=== PATIENT | female | born 2000 ===

== ENCOUNTER 2023-08-01 10:22 | Emergency (ER) | payer MEDICAID, SELFPAY ==
[2023-08-01 10:26] VITALS: BP 125/83; PULSE 85; RESP 15; TEMP 36.6; O2SAT 96; BMI 31.2
--- NOTE | 2023-08-01 11:01 | ED.GENADULT ---
HPI - General Adult General Chief complaint: Wound/Laceration Stated complaint: cyst on spine/ in pain Time Seen by Provider: 08/01/23 11:00 Source: patient Mode of arrival: ambulatory Limitations: no limitations History of Present Illness HPI narrative: Patient is a 23 year old assigned female at with no reported medical history presenting to the emergency department today with a pilonidal abscess. Patient states that she knows she has a pilonidal abscess and has an appointment with general surgery coming up for this issue. Patient states that 2 days ago it began to leak. Patient denies any dizziness, lightheadedness, abdominal pain, nausea, vomiting, fever, chills, blurry vision, double vision, loss of vision, chest pain, difficulty breathing, shortness of breath, back pain, night sweats, pain with urination, increased urinary frequency, increased urinary urgency, blood in her urine or stool, syncope or a near syncopal episode, recent trauma or falls, bowel incontinence, bladder incontinence, bowel retention, bladder retention, or any other complaints at this time. Severity: mild Relieving factors: none Exacerbating factors: none Associated symptoms: denies other symptoms Treatments prior to arrival: none Related Data Allergies Allergy/AdvReac Type Severity Reaction Status Date / Time cetirizine [From [facility]] Allergy Hives Verified 08/01/23 10:26 Review of Systems Constitutional: Constitutional: Reports no additional constitutional complaints, Denies chills, Denies fever(s) and Denies night sweats Eyes: Eyes: Reports no additional eye complaints, Denies blurry vision, Denies change in vision, Denies diplopia, Denies eye discharge, Denies loss of vision and Denies eye pain ENT: Denies dizziness Cardiovascular: Cardiovascular: Reports no additional cardiovascular complaints, Denies chest pain, Denies lightheadedness, Denies Loss of Consciousness and Denies dyspnea Respiratory: Respiratory: Reports no additional respiratory complaints and Denies dyspnea Gastrointestinal: Gastrointestinal: Reports no additional gastrointestinal complaints, Denies abdominal pain, Denies melena, Denies hematochezia, Denies change in bowel habits and Denies change in stool character Comments: pilonidal abscess Genitourinary: Genitourinary: Denies hematuria, Denies urinary frequency, Denies dysuria, Denies urinary incontinence, Denies urinary hesitancy and Denies urinary urgency Musculoskeletal: Musculoskeletal: Reports no additional musculoskeletal complaints, Denies numbness and Denies tingling Neurologic: Denies dizziness, Denies loss of vision, Denies numbness and Denies tingling Psychiatric: Psychiatric: Reports no additional psychiatric complaints Endocrine: Endocrine: Reports no additional endocrine complaints Hematologic/Lymphatic: Hematologic/Lymphatic: Reports no additional hematologic/lymphatic complaints Allergic/Immunologic: Allergic/Immunologic: Reports no additional allergic/immunologic complaints PMFSH Past Medical History Attestation statement: The following information was validated with the patient. Source: old records reviewed and nursing notes reviewed Onset Date is defined in the Problem List Problems that require an onset date and time if occurred within 24 hrs of arrival to the ED Aortic Dissection and Rupture; Neurologic impairment; Cardiopulmonary Arrest; Endotracheal Intubation; Insertion or Replacement of Mechanical Circulatory Assist Device Social History Social History Advance Directives: No Advance Directives Information Provided: No Physical Exam ED Vital Signs: Vital Signs - 24 hr 08/01/23 10:26 Temperature 98 F Pulse Rate 85 Respiratory Rate 15 Blood Pressure 125/83 Pulse Oximetry 96 Oxygen Delivery Method Room Air BMI result Body Mass Index 31.2 Const General: cooperative, no acute distress, alert and awake Nutritional Appearance: well nourished Orientation/consciousness: patient oriented x3 Limitations: no limitations HENMT Head: Yes normal to inspection and Yes atraumatic Ears: hearing grossly normal bilaterally and external ears normal General nose exam: Normal external nose present, no nasal discharge noted and no epistaxis Face and sinus: Yes normal facial exam, No abrasion and No laceration Mouth: Normal oral and palatal mucosa present, no drooling and no muffled voice Eyes General: appearance normal, both eyes and all related structures Periorbital: periorbital findings normal Eyelids: Yes eyelids normal Conjunctivae: conjunctivae normal Pupils: Equal, round and reactive pupils present EOM: EOMs intact bilaterally Neck Neck: Yes normal visual inspection, Yes full ROM and Yes no lymphadenopathy Chest Chest palpation & inspection: normal inspection of the chest Resp Effort & Inspection: normal respiratory effort and able to speak in complete sentences GI Other: pilonidal abscess actively draining at the 10 o'clock position on the left buttock Neuro General: patient oriented x3 and moves all extremities Cranial nerves: Yes Equal, round and reactive pupils present Cognition (Neuro): normal cognition Motor exam (neuro): 5/5 motor strength present throughout Sensory Exam: Normal double simultaneous stimulation for sensation Coordination: [id number] test normal Extrem General: Yes normal to inspection, Yes full ROM and Yes capillary refill normal Psych Appearance: grossly normal Mental Status: mental status grossly normal Affect: normal affect Attitude: cooperative Thought process: Normal thought process present Thought content: Normal thought content present Insight: Good insight present (Psych) Medical Decision Making Medical Decision Making MDM Narrative: Patient is a 23 year old assigned female at with no reported medical history presenting to the emergency department today with a draining pilonidal abscess. Patient's physical exam was as noted in the physical exam portion of this note. I explained my physical exam findings to the patient. I answered all questions asked by the patient. Patient's abscess is already draining, no need for additional intervention at this time. I stressed the importance of the patient taking her medication as prescribed. I stressed the importance of the patient following up with her primary care provider and the general surgeon. I stressed the importance of the patient returning to the emergency department immediately if her symptoms were to worsen or if she were to develop any dizziness, shortness of breath, difficulty breathing, chest pain, blurry vision, loss of vision, nausea, vomiting, abdominal pain, fever, chills, back pain, or any other complaints. Patient verbalized agreement and understanding with this treatment plan and discharge. Differential Diagnosis Differential Diagnoses: The differential diagnosis associated with the presentation includes Pilonidal abscess Pilonidal cyst Admission/Observation Consideration of admission/observation: Escalation of care including admission/observation considered Patient would have been admitted to the hospital had her clinical presentation warranted hospital admission. Discharge Plan Discharge Clinical Impression: Pilonidal abscess Patient Disposition: Home, Self-Care Instructions: Pilonidal Cyst (ED), Abscess (ED) Additional Instructions: Follow up with your primary care provider and your general surgeon. Return to the emergency department immediately if your symptoms worsen or if you develop any dizziness, shortness of breath, difficulty breathing, chest pain, blurry vision, loss of vision, nausea, vomiting, abdominal pain, fever, chills, back pain, or any other complaints. Referrals: [facility] General Surgeons [Provider Group] (Call to establish and follow up with a general surgeon. ) [facility] Family Medicine [Provider Group] (Call to establish and follow up with a primary care provider. If you already have a primary care provider, please follow up with them.) [facility] [Provider Group] (Call to establish and follow up with a primary care provider. If you already have a primary care provider, please follow up with them.) [facility] [Provider Group] (Call to establish and follow up with a primary care provider. If you already have a primary care provider, please follow up with them.) Interventions: ED Discharge Assessment Last Done: 08/01/23 11:18 Discharge Date/Time: 08/01/23 11:24 Print Language: Arabic
== END 2023-08-01 11:24 | disposition home or self-care (01) ==
LOC: HO.ED 11:14
PROVIDERS: Emergency Provider Emergency Medicine
DX: L05.91 Pilonidal cyst without abscess (principal)
CPT/HCPCS: 10080; 99202; 99282

== ENCOUNTER 2023-08-01 12:38 | Outpatient (AMB) | payer MEDICAID, SELFPAY ==
[2023-08-01 12:39] VITALS: BP 129/91; PULSE 107; BMI 30.3
--- NOTE | 2023-08-01 12:39 | MHC.OFFVIS ---
Intake Vital Signs 08/01/23 12:39 Height 5 ft Weight 155 lb BMI 30.3 BP 129/91 H Blood Pressure Location Rt brachial Position Standing Pulse 107 H Intake Visit Reasons: Pilonidal cyst Intake Note: Patient scheduled urgent appointment fir inflamed pilonidal cyst. Patient c/o: difficulty and pain when sitting. Was seen at [facility] ER on 07-27-23. Patient seen at [facility] this morning. Taking Cephalexin X3d. Specialty Trimmer Required: No Accompanied by: Self / Same As Patient Allergies cetirizine [From [facility]] Allergy (Verified 08/01/23 12:42) Hives HPI HPI Comments History of Present Illness Details Patient presents with a several week history of cleft/pilonidal cyst pain, swelling and some discharge. She was seen earlier in emergency department today and now presents to the office for further evaluation. Chart was reviewed patient evaluated [facility] Social History (Updated 08/01/23 @ 12:42 by CHELY Bledsoe) Alcohol intake: current Alcohol intake frequency: holidays/special occasions only Alcohol type: beer Patient Tobacco Use Status: Never used Tobacco Physical Exam Vital Signs: Last Vital Signs Pulse 107 H 08/01/23 12:39 BP 129/91 H 08/01/23 12:39 BMI result Body Mass Index 30.3 Back/Spine/Pelvis Other: Patient has an enormous pilonidal cyst abscess of the farzad cleft. This measures approximately 8 x 5 cm. Erythematous, fluctuant, very tender to palpation Office Procedures I&D Drain Details: Risks, benefits, alternatives of excision of complex pilonidal abscess were reviewed with the patient and included but not limited to bleeding, infection, recurrence, numbness, pain, scarring the patient wished to proceed. All questions answered. After appropriate positioning, patient underwent 1% lidocaine and Betadine prep. Left side of midline abscess was incised where copious amounts of purulent material were retrieved. Cultures obtained. Wound was irrigated, secured hemostasis, packed, and dressing applied. Patient tolerated procedure well. 44430-[id number] of Pilonidal Cyst, complex All charges added?: Procedure code (CPT) selection complete Assessment & Plan Assessment & Plan (1) Pilonidal abscess: Code(s): L05.01 - Pilonidal cyst with abscess Plan: Patient is to continue her prescribed antibiotics, she was given a script analgesics, VNA services and office dressing change arrangements will be made. Patient will see me in approximately 1 week's time for follow-up or p.r.n.. All questions answered. Orders: Orders Routine Culture w Gram Stain Today L05.01 - Pilonidal cyst with abscess AMB Incision & Drainage Today L05.01 - Pilonidal cyst with abscess Referrals [facility] Referral L05.01 - Pilonidal cyst with abscess Medications: New hydrocodone-acetaminophen 5-325 mg Partial Fill upon patient request. 1 tab PO Q4-6H PRN 30 tabs 0RF pain Coding Level of Care Code New Pt Level 5 (46291) Diagnoses Pilonidal abscess L. CPT Codes I&D Drain - Drain 4: 45501-Exqtkxrr of Pilonidal Cyst, complex ([id number])
== END 2023-08-01 13:06 | disposition home or self-care (01) ==
PROVIDERS: Visit Provider Surgery
DX: L05.01 Pilonidal cyst with abscess (principal)
CPT/HCPCS: 10080; 99204

== ENCOUNTER 2023-08-01 13:10 | Outpatient (REF) | payer MEDICAID, SELFPAY | END 2023-08-01 13:11 | disposition home or self-care (01) | LOC: HO.LAB 13:10 | PROVIDERS: Visit Provider Surgery | DX: L05.01 Pilonidal cyst with abscess (principal) | CPT/HCPCS: 87070; 87205 ==

== ENCOUNTER 2023-08-13 13:37 | Outpatient (AMB) | payer MEDICAID, SELFPAY ==
[2023-08-13 13:37] VITALS: BP 125/82; PULSE 99; BMI 30.3
--- NOTE | 2023-08-13 13:37 | A.OFFVIS_ITS ---
Intake Vital Signs 08/13/23 13:37 Height 5 ft Weight 155 lb BMI 30.3 BP 125/82 Blood Pressure Location Rt brachial Position Standing Pulse 99 Intake Visit Reasons: F/U post I&D in office, pilonidal cyst Intake Note: Patient here post I&D on 08-01-23. No longer taking rx pain meds. Patient c/o:pressure and skin feels like it is pulling when sitting. Ophthalmology Technician Required: No Accompanied by: Self / Same As Patient Allergies cetirizine [From [facility]] Allergy (Verified 08/13/23 13:38) Hives HPI HPI Comments History of Present Illness Details Patient presents for follow-up status post I&D of pilonidal complex abscess. She has had marked improvement of her symptoms. She is undergoing local wound care. She is completing her antibiotic course. No other issues or complaints [facility] Surgical History (Updated 08/13/23 @ 13:39 by CHELY Bledsoe) History of excision of pilonidal cyst Social History (Updated 08/01/23 @ 12:42 by CHELY Bledsoe) Alcohol intake: current Alcohol intake frequency: holidays/special occasions only Alcohol type: beer Patient Tobacco Use Status: Never used Tobacco Physical Exam Vital Signs: Last Vital Signs Pulse 99 08/13/23 13:37 BP 125/82 08/13/23 13:37 BMI result Body Mass Index 30.3 Back/Spine/Pelvis Other: Pilonidal wound has markedly decreased in size, granulating well, and complete resolution of the infective process. Assessment & Plan Assessment & Plan (1) Pilonidal cyst with abscess: Code(s): L05.01 - Pilonidal cyst with abscess Plan Patient is continue local wound care, and will see me in approximately 2 weeks' time. She wishes to discuss excision of this process which we will do in more detail at the next visit. All questions answered. Patient will see me as directed or p.r.n. Coding Level of Care Code Global (25411) Diagnoses Pilonidal cyst with abscess L05.01
== END 2023-08-13 13:52 | disposition home or self-care (01) ==
PROVIDERS: Visit Provider Surgery
DX: L05.01 Pilonidal cyst with abscess (principal)
CPT/HCPCS: 99024

== ENCOUNTER → 2023-08-13 13:37 | Outpatient (BNVA) | payer MEDICAID, SELFPAY | PROVIDERS: Visit Provider Surgery | DX: L05.01 Pilonidal cyst with abscess (principal) | CPT/HCPCS: 99212 ==

== ENCOUNTER 2023-09-01 14:13 | Outpatient (AMB) | payer MEDICAID, SELFPAY ==
--- NOTE | 2023-09-01 14:14 | A.OFFVIS_ITS ---
Intake Vital Signs 09/01/23 14:17 Weight 155 lb BP 125/77 Blood Pressure Location Lt brachial Position Sitting Pulse 67 Intake Visit Reasons: F/U post I&D in office, pilonidal cyst Intake Note: Patient here to f/u pilonidal cyst I&D on 08-01-23. Finished bactrin course. Patient reports healing well. Java Enterprise Architect Required: No Accompanied by: Self / Same As Patient Allergies cetirizine [From [facility]] Allergy (Verified 09/01/23 14:18) Hives HPI HPI Comments History of Present Illness Details Patient presents for follow-up status post I&D of complex pilonidal abscess. She has complete resolution of her symptoms. [facility] Surgical History History of excision of pilonidal cyst Social History Alcohol intake: current Alcohol intake frequency: holidays/special occasions only Alcohol type: beer Patient Tobacco Use Status: Never used Tobacco Physical Exam Vital Signs: Last Vital Signs Pulse 67 09/01/23 14:17 BP 125/77 09/01/23 14:17 Chest Other: Chest breath sounds bilaterally, HS 1 in 2 GI Other: Abdomen soft, benign Back/Spine/Pelvis Other: Abscess wound is completely healed. Assessment & Plan Assessment & Plan (1) Pilonidal cyst with abscess: Code(s): L05.01 - Pilonidal cyst with abscess Plan Therapeutic options were reviewed with the patient which include DNR observation with risk of recurrence or excision. Patient has opted for the latter. Risks, benefits, alternatives of wide local excision of pilonidal cyst of farzad cleft were reviewed with the patient and included but not limited to bleeding, infection, recurrence, numbness, pain, scarring, wound dehiscence, seroma formation and the patient wishes to proceed. All questions answered. Arrangements were made for this. Coding Level of Care Code Est Pt Level 5 (85560) Diagnoses Pilonidal cyst with abscess L05.01
[2023-09-01 14:17] VITALS: BP 125/77; PULSE 67
== END 2023-09-01 14:36 | disposition home or self-care (01) ==
PROVIDERS: Visit Provider Surgery
DX: L05.01 Pilonidal cyst with abscess (principal)
CPT/HCPCS: 99214

== ENCOUNTER → 2023-09-01 14:13 | Outpatient (BNVA) | payer MEDICAID, SELFPAY | PROVIDERS: Visit Provider Surgery | DX: L05.01 Pilonidal cyst with abscess (principal) | CPT/HCPCS: 99212 ==

== ENCOUNTER 2023-09-19 10:37 | Day surgery (SDC) | payer MEDICAID, SELFPAY ==
--- NOTE | 2023-09-17 15:23 | HO.ANESPROP2 ---
Documented by User: Nuvia Schwartz NP 09/17/23 15:24 HPI - Anesthesia Eval Consult details Narrative: 23yo F for Wide Local Excision Pilonidal Cyst of farzad cleft, prone position [facility] Active Problems Active Problems: All Active Problems (Updated 08/13/23 @ 14:07 by Colt Verma MD) Pilonidal cyst with abscess (Acute) Surgical History Surgical History History of excision of pilonidal cyst Social History Social History Alcohol intake: current Alcohol intake frequency: holidays/special occasions only Alcohol type: beer Patient Tobacco Use Status: Never used Tobacco Use of substances other than those prescribed or required for medical reasons: Yes Are you DNR?: No Advance Directives: No Advance Directives Information Provided: Yes Meds Allergies Allergy/AdvReac Type Severity Reaction Status Date / Time cetirizine [From [facility]] Allergy Hives Verified 09/01/23 14:18 Home Medications Medication Instructions Recorded Confirmed Last Taken Type lamotrigine 100 mg tablet 100 mg PO DAILY 09/19/23 09/19/23 09/19/23 History Assessment and Plan Assessment Anesthesia Assessment: Chart Reviewed Documented by User: Camilla Hung MD 09/19/23 14:02 [facility] Surgical History Surgical History History of excision of pilonidal cyst History of Problems with Anesthesia: No Social History Social History Alcohol intake: current Alcohol intake frequency: holidays/special occasions only Alcohol type: beer Patient Tobacco Use Status: Never used Tobacco Use of substances other than those prescribed or required for medical reasons: Yes Are you DNR?: No Advance Directives: No Advance Directives Information Provided: Yes Meds Allergies Allergy/AdvReac Type Severity Reaction Status Date / Time cetirizine [From [facility]] Allergy Hives Verified 09/01/23 14:18 Home Medications Medication Instructions Recorded Confirmed Last Taken Type lamotrigine 100 mg tablet 100 mg PO DAILY 09/19/23 09/19/23 09/19/23 History Exam Airway Mallampati Class: II TM Dist: >3cm Neck ROM: Full Loose/Missing/Broken Teeth: No Heart: RRR Lungs: CTA Assessment and Plan Assessment Anesthesia Assessment: Anesthesia Plan Discussed Final Anesthetic Review History of Problems with Anesthesia: No NPO: Yes ASA Class: II Final Preanesthetic Review: Meds/Allgs Chart Reviewed, Consent Obtained/Reviewed and Anes Risks/Benef Reviewed Patient Risk: Low Procedure Risk: Intermediate Anesthetic Plan Anesthetic Plan: GA Disposition: Standard PACU
--- NOTE | 2023-09-18 21:04 | P.HPSUR_ITS ---
Pre-Procedural Eval Section A - 24 Hr Update-Section A only Date of Service: 09/18/23 The patient is an INPATIENT: No Changes since office visit: No Cold of Flu in the past 2 weeks, No New Medical Problems, No Changes in Medication and No Patient answered all questions The patient has been examined within 24 hours of the surgical procedure. The History & Physical has been completed within 30 days and I have reviewed it.: Yes Section B - Complete if H&P > 30 days Chief Complaint: Pilonidal cyst with abscess Allergies: Allergies Allergy/AdvReac Type Severity Reaction Status Date / Time cetirizine [From [facility]] Allergy Hives Verified 09/01/23 14:18 Plan I have reviewed the history and physical and performed a pertinent physical examination on my patient. No changes have occurred unless specified. Time Spent With Patient Time: Total time managing care of this patient today ____ minutes.
[2023-09-19 11:51] VITALS: BP 107/68; PULSE 52; RESP 18; TEMP 36.1; O2SAT 96; BMI 26.4
[2023-09-19 11:56] LABS: UPreg QC Valid YES; Urine Pregnancy NEGATIVE (NEGATIVE)
[2023-09-19] MEDS: Lactated Ringers 1,000 ML 100 ML IVCONT (12:26)
--- NOTE | 2023-09-19 15:23 | P.OP_ITS ---
Operative Note Operative Note Date of Service: 09/19/23 Narrative: Preoperative diagnosis: [] Recurrent pilonidal cyst symptoms of cleft Postop diagnosis: [] The same Procedure [] pilonidal cyst excision of cleft Surgeon: [] Bayron Composition Roll Maker And Cutter: [] Lyric Type of Anesthesia: [] LMA Indication for surgery: [] Recurrent pilonidal cyst Findings: [] Patient brought to the operating room, placed on operative table supine position, after an adequate level of MAC anesthesia was induced, patient was placed in the prone position and LMA placed. The farzad cleft area and bilateral buttock area was prepped and draped in usual sterile fashion. Using a longitudinal by elliptical incision just to the left of midline were the diseased tissue presented, this carried down through skin, subcutaneous tissue, and continued excision down to the post sacral fascia. Specimen sent to pathology. Wounds irrigated, secured hemostasis, and closed in the following manner; deep subcutaneous tissue to wound base to contralateral deep subcutaneous tissue interrupted 0 Vicryl sutures were initially placed. Interrupted inverted dermal 2-0 Vicryl sutures followed by vertical mattress 2-0 Prolene sutures were then placed. Wound was infiltrated at the beginning of the case with 0.5% Marcaine/1% lidocaine. Sterile dressing was applied. Sponge, needle, and instrument counts reported correct. Patient tolerated the procedure well and emerged from anesthesia in stable condition. EBL minimal
[2023-09-19 15:39] VITALS: BP 95/48; PULSE 60; RESP 16; TEMP 36.6; O2SAT 97
[2023-09-19 15:44] VITALS: BP 105/43; PULSE 74; RESP 16; O2SAT 97
[2023-09-19 15:49] VITALS: BP 95/43; PULSE 55; RESP 16; O2SAT 98
[2023-09-19 15:54] VITALS: BP 100/57; PULSE 61; RESP 16; TEMP 36.6; O2SAT 99
[2023-09-19 16:09] VITALS: BP 105/79; PULSE 62; RESP 16; O2SAT 99
== END 2023-09-19 16:53 | disposition home or self-care (01) ==
PROVIDERS: Nurse Practitioner; Visit Provider Surgery
PROC: (CPT 11771; principal; 2023-09-19 13:30)
DX: L05.01 Pilonidal cyst with abscess (principal)
CPT/HCPCS: 11771; 81025; 88304; J0690; J1885; J2250; J2405; J2704; J2795; J3010

== ENCOUNTER → 2023-09-19 10:37 | Outpatient (BNV) | payer MEDICAID, SELFPAY | PROVIDERS: Visit Provider Surgery | DX: L05.01 Pilonidal cyst with abscess (principal) | CPT/HCPCS: 11771 ==

== ENCOUNTER 2023-09-29 11:33 | Outpatient (AMB) | payer MEDICAID, SELFPAY ==
[2023-09-29 11:38] VITALS: BP 137/77; PULSE 92
--- NOTE | 2023-09-29 11:38 | A.OFFVIS_ITS ---
Intake Vital Signs 09/29/23 11:38 Weight 160 lb BP 137/77 Blood Pressure Location Rt brachial Position Sitting Pulse 92 Intake Visit Reasons: S/P WLE pilonidal cyst Intake Note: Patient here s/p WLE pilonidal cyst on farzad cleft. Reports incision healing well. Patient c/o: pain, bleeding Florist'S Decorator Required: No Accompanied by: Self / Same As Patient Allergies cetirizine [From [facility]] Allergy (Verified 09/29/23 11:39) Hives HPI HPI Comments History of Present Illness Details Patient presents for follow-up. She is having incisional discomfort which is expected. She has tolerating a diet. Having regular bowel habits. She is ambulating with minimal issues. [facility] Surgical History History of excision of pilonidal cyst Social History Alcohol intake: current Alcohol intake frequency: holidays/special occasions only Alcohol type: beer Patient Tobacco Use Status: Never used Tobacco Physical Exam Vital Signs: Last Vital Signs Pulse 92 09/29/23 11:38 BP 137/77 09/29/23 11:38 Skin Other: Wound is clean dry and intact. The most inferior part is partially with some serous drainage but no evidence of any infection. Assessment & Plan Assessment & Plan (1) Status post surgical removal of pilonidal cyst: Code(s): Z98.890 - Other specified postprocedural states Plan Patient was reassured. She should avoid strenuous activities. She has been given local wound care. She will see me in proximal weeks time for suture removal or p.r.n.. All questions answered. Patient will be given a renewal of pain meds and a note for out of work until next visit. Coding Level of Care Code Global (95684) Diagnoses Status post surgical removal of pilonidal cyst Z98.890
== END 2023-09-29 11:46 | disposition home or self-care (01) ==
PROVIDERS: Visit Provider Surgery
DX: Z98.890 Other specified postprocedural states (principal)
CPT/HCPCS: 99024

== ENCOUNTER → 2023-09-29 11:33 | Outpatient (BNVA) | payer MEDICAID, SELFPAY | PROVIDERS: Visit Provider Surgery | DX: Z98.890 Other specified postprocedural states (principal) | CPT/HCPCS: 99212 ==

== ENCOUNTER 2023-10-06 11:31 | Outpatient (AMB) | payer MEDICAID, SELFPAY ==
--- NOTE | 2023-10-06 11:38 | A.OFFVIS_ITS ---
Intake Vital Signs 10/06/23 11:39 Weight 160 lb BP 105/79 Blood Pressure Location Rt brachial Position Sitting Pulse 92 Intake Visit Reasons: 1 wk follow up suture removal-WLE pilonidal cyst Intake Note: Patient here 1wk f/u suture removal- WLE pilonidal cyst on farzad cleft. Patient c/o: feels like sutures are pulling. Uncomfortable sitting. Still taking rx pain meds as needed. SX: 09-19-23. Packaging Specialist Required: No Accompanied by: Self / Same As Patient Allergies cetirizine [From [facility]] Allergy (Verified 10/06/23 11:40) Hives HPI HPI Comments History of Present Illness Details Patient presents for follow-up. She has had marked improvement in her incisional discomfort. [facility] Surgical History History of excision of pilonidal cyst Social History Alcohol intake: current Alcohol intake frequency: holidays/special occasions only Alcohol type: beer Patient Tobacco Use Status: Never used Tobacco Physical Exam Vital Signs: Last Vital Signs Pulse 92 10/06/23 11:39 BP 105/79 10/06/23 11:39 Back/Spine/Pelvis Other: Pilonidal wound is healing uneventfully. The most inferior aspect similar to last week is mildly but granulating well. No evidence of any infection. Patient had uneventful suture removal. Dressing applied. Well tolerated. Assessment & Plan Assessment & Plan (1) Status post surgical removal of pilonidal cyst: Code(s): Z98.890 - Other specified postprocedural states Plan Patient again has been given very specific local instructions, for next few weeks time and will follow-up p.r.n.. All questions answered. Coding Level of Care Code Global (27654) Diagnoses Status post surgical removal of pilonidal cyst Z98.890
[2023-10-06 11:39] VITALS: BP 105/79; PULSE 92
== END 2023-10-06 11:44 | disposition home or self-care (01) ==
LOC: HO.HGS 11:32
PROVIDERS: Visit Provider Surgery
DX: Z98.890 Other specified postprocedural states (principal)
CPT/HCPCS: 99024

== ENCOUNTER → 2023-10-06 11:32 | Outpatient (BNVA) | payer MEDICAID, SELFPAY | PROVIDERS: Visit Provider Surgery | DX: Z98.890 Other specified postprocedural states (principal) | CPT/HCPCS: 99212 ==

== ENCOUNTER 2024-04-01 09:43 | Emergency (ER) | payer MEDICAID, SELFPAY ==
--- NOTE | ~2024-04-01 | XR_ITS ---
EXAMINATION: XR CHEST CLINICAL INFORMATION: Productive cough history of asthma COMPARISON: None available. TECHNIQUE: 2 views of the chest were obtained. FINDINGS: No focal consolidation. No pneumothorax. Trachea is midline. Cardiac mediastinal silhouette is not enlarged. No large pleural effusion. Osseous structures are intact. Soft tissues are unremarkable. XR/XR chest 2V IMPRESSION: No acute cardiopulmonary process. Electronically signed by: Natalie Win MD 04/01/2024 11:13 AM EDT
[2024-04-01 09:57] VITALS: BP 119/85; PULSE 98; RESP 20; TEMP 36.2; O2SAT 96; BMI 27.3
--- NOTE | 2024-04-01 10:04 | ED_ITS ---
HPI - General Adult General Chief complaint: Upper Respiratory Symptoms Stated complaint: SOB - asthma Time Seen by Provider: 04/01/24 10:03 Source: patient Mode of arrival: ambulatory Limitations: no limitations History of Present Illness ED Provider: steve LUNA narrative: Patient is a 24-year-old female with history of asthma presenting to the emergency department with complaint shortness of breath, cough productive of yellow sputum for the past 4 days. Denies fevers. Denies chest pain or palpitations. Complains of hoarse voice. Has been using inhalers at home with little relief. MD complaint: shortness of breath Onset (ago): day(s) Associated symptoms: cough Treatments prior to arrival: other Related Data Home Medications ?Medication ?Instructions ?Recorded ?Confirmed lamotrigine 100 mg tablet 100 mg PO DAILY 09/19/23 09/19/23 Previous Rx's ?Medication ?Instructions ?Recorded hydrocodone 5 mg-acetaminophen 325 1 tab PO Q4-6H PRN pain #30 tabs 09/19/23 mg tablet hydrocodone 5 mg-acetaminophen 325 1 tab PO Q4-6H PRN pain #30 tabs 09/29/23 mg tablet Allergies Allergy/AdvReac Type Severity Reaction Status Date / Time cetirizine [From [facility]] Allergy Hives Verified 04/01/24 10:00 [facility] Past Medical History Surgical History History of excision of pilonidal cyst Social History Social History Alcohol intake: current Alcohol intake frequency: holidays/special occasions only Alcohol type: beer Patient Tobacco Use Status: Never used Tobacco Advance Directives: No Advance Directives Information Provided: Yes Physical Exam ED Vital Signs: Vital Signs - 24 hr 04/01/24 09:57 04/01/24 10:22 Temperature 97.1 F Pulse Rate 98 76 Respiratory Rate 20 18 Blood Pressure 119/85 Pulse Oximetry 96 Oxygen Delivery Method Room Air BMI result Body Mass Index 27.3 Medications Administered Discontinued Medications Generic Name Dose Route Start Last Admin Trade Name Freq PRN Reason Stop Dose Admin Albuterol Sulfate 2.5 mg/ 0 mg 04/01/24 10:23 04/01/24 10:26 Albuterol/Ipratropium 3 ml INHALE 04/01/24 10:24 1 dose ONCE ONE Administration Medical Decision Making Medical Decision Making [facility] Narrative: Patient is a 24-year-old female with history of asthma presenting to the emergency department with complaint shortness of breath, cough productive of yellow sputum for the past 4 days. On exam patient is awake, A+Ox3, VS WNL, afebrile, normal neurological exam without focal deficits, physical exam findings as above. Given reported symptoms and physical exam findings, initial differential includes viral illness, COVID, flu, bronchitis, pneumonia. Viral serology positive for COVID. X-ray chest notable for no evidence of pneumonia. My interpretation is in agreement with the radiologist's interpretation. Patient left department prior to receiving notification that she was Covid positive. Patient contacted via telephone but did not answer. Patient is outside window for treatment with antiviral medication. Plan was discharge home. Differential Diagnosis Differential Diagnoses: The differential diagnosis associated with the presentation includes As per [facility] Lab Data [facility] Lab Attestation statement: I reviewed the patient's lab results. As per [facility] Labs: Lab Results 04/01/24 Range/Units 10:10 Influenza Type A (PCR) NEGATIVE (Negative) Influenza Type B (PCR) NEGATIVE (Negative) RSV RNA Qual (PCR) NEGATIVE (Negative) SARS-CoV-2 RNA (RT-PCR) POSITIVE A (Negative) Independent Interpretation I performed an independent interpretation of an: Plain X-Ray Interpretation: No evidence of pneumonia on CXR Radiology Impression Discussion of test interpretation with radiology: I have reviewed the radiologist's reading. Radiologist Impression: XR/XR chest 2V IMPRESSION: No acute cardiopulmonary process. External Record Review External record reviewed: Inpatient record, Office record and Outpatient record Discharge Plan Discharge Clinical Impression: COVID-19 Patient Disposition: Home, Self-Care Instructions: COVID-19 (Coronavirus Disease 2019) (ED) Additional Instructions: You were evaluated in the emergency department today for shortness of breath and cough. Your COVID test was resulted as positive. You should continue to isolate at home for another 2 days. You should continue to wear mask for 5 days after that. Covid is a viral infection which should resolve on it's own with rest. Be sure to drink plenty of fluids. You are being prescribed a short course of prednisone to decrease inflammation. Return to the emergency department with worsening shortness of breath, chest pain, fever that does not improve with Tylenol or ibuprofen, persistent vomiting, or any other concerning symptoms. You should follow-up with your primary care provider. Prescriptions: No Action lamotrigine 100 mg tablet 100 mg PO DAILY hydrocodone-acetaminophen 5-325 mg tablet 1 tab PO Q4-6H PRN (Reason: pain) Qty: 30 0RF Rx Instructions: Partial Fill upon patient request. hydrocodone-acetaminophen 5-325 mg tablet 1 tab PO Q4-6H PRN (Reason: pain) Qty: 30 0RF Rx Instructions: Partial Fill upon patient request. Print Language: Vietnamese
[2024-04-01 10:22] VITALS: PULSE 76; RESP 18; O2SAT 95
[2024-04-01] MEDS: Albuterol Sulfate 2.5 MG, Albuterol/Iprat 2.5/0.5MG 3 ML 3 ML INHALE (10:26)
[2024-04-01 11:00] LABS: Influenza A PCR NEGATIVE (Negative); Influenza B PCR NEGATIVE (Negative); Resp Syncy Virus RNA Qual PCR NEGATIVE (Negative); SARS COV2 PCR INHOUSE POSITIVE (Negative)
[2024-04-01 11:34] VITALS: BP 0/0; PULSE 0; RESP 0; TEMP -17.7; TEMP 0; O2SAT 0
== END 2024-04-01 11:36 | disposition home or self-care (01) ==
PROVIDERS: Registered Nurse Emergency; Emergency Provider Emergency Medicine
DX: R06.02 Shortness of breath (principal); R05.9 Cough, unspecified; J45.909 Unspecified asthma, uncomplicated; Z03.818 Encounter for observation for suspected exposure to other biological agents ruled out
CPT/HCPCS: 0241U; 71046; 94640; 99283; 99284

== ENCOUNTER 2024-12-27 10:24 | Emergency (ER) | payer MEDICAID, SELFPAY ==
[2024-12-27 10:39] VITALS: BP 149/92; PULSE 82; RESP 16; TEMP 36.9; O2SAT 98; BMI 28.3
--- NOTE | 2024-12-27 11:25 | ED.GENADULT ---
HPI - General Adult General Chief complaint: Dental/Oral Stated complaint: wisdom teeth pain, Swelling, Time Seen by Provider: 12/27/24 11:16 Source: patient, RN notes reviewed and old records reviewed Mode of arrival: ambulatory Limitations: no limitations History of Present Illness ED Provider: Lamar LUNA narrative: 24-year-old female presents for evaluation of facial pain. Patient reports that in his symptoms started about 2 weeks ago. She saw her dentist and was told she has impacted wisdom teeth She was given ibuprofen and amoxicillin which she has been taking without any improvement She is due to see your oral surgeon 2 days from now on Friday Her pain radiates to both ears She reports difficulty opening and closing her mouth Related Data Home Medications ?Medication ?Instructions ?Recorded ?Confirmed lamotrigine 100 mg tablet 100 mg PO DAILY 09/19/23 09/19/23 Previous Rx's ?Medication ?Instructions ?Recorded hydrocodone 5 mg-acetaminophen 325 1 tab PO Q4-6H PRN pain #30 tabs 09/19/23 mg tablet hydrocodone 5 mg-acetaminophen 325 1 tab PO Q4-6H PRN pain #30 tabs 09/29/23 mg tablet oxycodone 5 mg tablet 5 mg PO Q6H PRN severe pain (scale 12/27/24 score 7-10) #16 tabs Allergies Allergy/AdvReac Type Severity Reaction Status Date / Time cetirizine [From [facility]] Allergy Hives Verified 12/27/24 10:40 kiwi Allergy Anaphylaxis Verified 12/27/24 10:40 Review of Systems Constitutional: Constitutional: Denies body ache(s), Denies chills and Denies fever(s) ENT: Denies ear discharge, Reports otalgia, Reports facial pain and Reports mouth pain Cardiovascular: Cardiovascular: Denies dyspnea Respiratory: Respiratory: Denies cough and Denies dyspnea Gastrointestinal: Gastrointestinal: Denies abdominal pain, Denies nausea and Denies vomiting Musculoskeletal: Musculoskeletal: Denies back pain PMF Past Medical History Surgical History History of excision of pilonidal cyst Social History Social History Alcohol intake: current Alcohol intake frequency: holidays/special occasions only Alcohol type: beer Patient Tobacco Use Status: Never used Tobacco Advance Directives: No Advance Directives Information Provided: Yes Physical Exam ED Vital Signs: Vital Signs - 24 hr 12/27/24 10:39 12/27/24 11:48 Temperature 98.4 F 98.4 F Pulse Rate 82 82 Respiratory Rate 16 16 Blood Pressure 149/92 H 149/92 H Pulse Oximetry 98 98 Oxygen Delivery Method Room Air Room Air BMI result Body Mass Index 28.3 Const General: healthy appearing, comfortable, no acute distress, alert and awake Nutritional Appearance: well nourished Orientation/consciousness: patient oriented x3 HENMT Other: Mild left sided facial edema. No significant erythema or fluctuance. There is no true trismus, no retropharyngeal edema. No evidence of dental abscess. No anterior enck edema Head: Yes normocephalic and Yes atraumatic Ears: TM's normal bilaterally and EAC's normal Throat: Yes posterior oropharynx normal Eyes Eyelids: Yes eyelids normal Conjunctivae: conjunctivae normal Sclerae: sclerae normal Corneas: corneas normal Pupils: Equal, round and reactive pupils present EOM: EOMs intact bilaterally Neck Neck: Yes full ROM Resp Effort & Inspection: normal respiratory effort, able to speak in complete sentences and not labored Skin General skin exam: elasticity normal Neuro General: patient oriented x3 Cranial nerves: Yes Equal, round and reactive pupils present and Yes Bilaterally intact EOM present Cognition (Neuro): normal cognition Extrem Other: Moving all extremities well without any obvious deformities Medical Decision Making Medical Decision Making MDM Narrative: 24 year old female presents for evaluation of facial pain and dental pain. There is no evidence of infection. She has follow up with an oral surgeon in 2 days. Plan to have her continue prophylactic antibiotics and we will give her a short course of Oxycodone for pain control. Differential Diagnosis Differential Diagnoses: The differential diagnosis associated with the presentation includes facial pain, dental abscess, otitis emdia, pharyngitis, gingivitis Discharge Plan Discharge Clinical Impression: Acute facial pain Patient Disposition: Home, Self-Care Instructions: Toothache (ED) Additional Instructions: I do not see any sign of infection However, I suggest you finish the course of antibiotics you are on. You may continue Ibuprofen and Tylenol for pain, but do not take them more than prescribed You may use Oxycodone for severe, breakthrough pain This may make you drowsy, do not drink alcohol or drive after taking it Prescriptions: New oxycodone 5 mg tablet 5 mg PO Q6H PRN (Reason: severe pain (scale score 7-10)) Qty: 16 0RF Rx Instructions: Partial Fill upon patient request. No Action lamotrigine 100 mg tablet 100 mg PO DAILY hydrocodone-acetaminophen 5-325 mg tablet 1 tab PO Q4-6H PRN (Reason: pain) Qty: 30 0RF Rx Instructions: Partial Fill upon patient request. hydrocodone-acetaminophen 5-325 mg tablet 1 tab PO Q4-6H PRN (Reason: pain) Qty: 30 0RF Rx Instructions: Partial Fill upon patient request. Stand Alone Forms: Work/School Release Interventions: ED Discharge Assessment Last Done: 12/27/24 11:48 Discharge Date/Time: 12/27/24 11:49 Print Language: Filipino
[2024-12-27 11:48] VITALS: BP 149/92; PULSE 82; RESP 16; TEMP 36.9; O2SAT 98
--- OUTSIDE RECORDS SUMMARY | 2024-12-27 12:16 | XMS_ITS | Encounter Summary ---
Author Organization [facility] Address [address] [place] [address] Care Team Providers Care Composite Bond Technician Name Role Phone Provider, Apcc Unavailable Unavailable Kingston Guerrero MD Primary Care Provider [phone] Encounter Details Date Type Department Care Team ([facility] st Contact Info) Description 09/20/2024 Orders Only [facility] Pulmonary [address] [facility] [address] [place] [address] Bryan Mosley PA [address] [facility] [address] [place] [address] Social History Tobacco Use Types Packs/Day Years Used Date Smoking Tobacco: Never Smokeless Tobacco: Never Alcohol Use Standard Drinks/Week Comments Yes 0 (1 standard drink = 0.6 oz pur e alcohol) socially PHQ-2 Answer Date Recorded Patient Health Questionnaire-2 Score 2 09/02/2024 PHQ-9 Answer Date Recorded Patient Health Questionnaire-9 Score 8 09/02/2024 Intimate Partner Violence Answer Date R ecorded Fear of Current or Ex-Partner Not on file Emotionally Abused Not on file 07/22/2023 Physically Abused Not on file 07/22/2023 Sexually Abused Not on file 07/22/2023 Do you feel physically and e motionally safe where you currently live? Yes 07/22/2023 Social Connections Answer Date Recorded Phone Communication Never 07/22/2023 Get together with friends / family Never 07/22/2023 Attend hoahaoism services Never 2023 Club Membership Yes 07/22/2023 Club Attendance More than 4 times per year 07/22 Marital Status Living with partner 07/22/2023 Financial Resource Strain Answer Date R ecorded Difficulty paying for basics Hard 08/2023 How hard is it for you to pa y for utilities (electricity, gas, water)? Hard 07/22/2023 Food Insecurity Answer Date Recorded Worry that food will run out Sometimes true 08/2023 Inability to get food Often true 07/22/2023 Transportation Needs Answer Date Record ed Lacking transport to medical appts Yes 07/22/2023 Lacking transport to non-medical Yes 07/22/2023 Housing Stability Answer Date Recorded Unable to Pay for Housing in the Last Year Yes 12/03/2023 [address] of Places Lived in the Last Year 2 12/03/2023 Unstable Housing in the Last Year No 12/03/2023 Do you have housing? Not on file 12/03/2023 Are you worried about losing your housing? Not o n file 12/03/2023 Are you worried about losing your housing? Not o n file 12/03/2023 Adolescent Education and Socialization Answer Date Recorded Getting School Help Needed Not on file 07/22 How often do you get together with friends or re latives? 1 07/22/2023 Do you belong to any clubs o r organizations such as faith groups, unions, athletic groups, or school groups? 1 08/2023 How often do you attend meet ings of the clubs or organizations you belong to? 3 07/22/2023 Comments No Sex and Gender Information Value Date Recorded Sex Assigned at Not on file Legal Sex Female 7:37 AM EDT Gender Identity Not on file Sexual Orientation Not on file Occupation Industry Job Start Date Job End Date student Not on file Not on file Not on file documented as of this encounter Miscellaneous Notes * Result Encounter Note - Bryan Mosley PA - 09/20/2024 2:52 PM EST . documented in this encounter Plan of Treatment Upcoming Encounters Date Type Department Care Team (Late st Contact Info) Description 01/27/2025 11:15 AM EDT Office Visit [facility] Pulmonary [address] [place] [address] [address] [place] [address] Bryan Mosley PA [address] [place] [address] 3 month f/u asthma 03/09/2025 4:00 PM EDT Office Visit [facility]. Optometry [address] [place] [id number] Randolph, Eva, OD [address] [place] [address] *est pt, CL update only $55, no DM; aodv; NOT elig for exam until 11/02/2025 EM, 08/13 months, $0 copay, aoir documented as of this encounter Procedures * Due to [facility] law, this organization might not be sharing negative HIV tests. Procedure Name Priority Date/Time Associated Diagnosis Comments [facility] Routine 09/20/2024 2:52 PM EST Severe persistent asthma without complication EOSINOPHILS, ABSOLUTE Routine 09/20/2024 2:52 PM EST Severe persistent asthma without complication documented in this encounter Results * Due to [facility] law, this organization might not be sharing negative HIV tests. * EOSINOPHILS, ABSOLUTE (09/20/2024 2:52 PM EST) WBC 6.3 3.8 - 10.8 Thousand/u L [facility] Eosinophils # 252 15 - 500 cells/uL [facility] Eosinophils % 4.0 % [facility] 09/20/2024 2:52 PM EST 09/21/2024 3:52 AM EST Narrative Resulting Agency Comment [id number] us Bryan [facility] Final Result [facility] [address] [place] [address] * (ABNORMAL) [facility] (09/20/2024 2:52 PM EST) IgE 222(H) <HF=437 kU/L [facility] Gigi Grass (G6) IgE 2.22(H) kU/L [facility] CLASS 2 [facility] Keily Grass([place] Blue)(G8) IgE 2.18(H) kU/L [facility] CLASS 2 [facility] Common Ragweed (Short)(W1) IgE <0.10 kU/L [facility] CLASS 0 [facility] Saudi Arabian Plantain (W9) IgE <0.10 kU/L [facility] CLASS 0 [facility] Garrett's Quarters (Goosefoot) (W10) IgE <0.10 kU/L [facility] CLASS 0 [facility] Knapp (T7) IgE <0.10 kU/L [facility] CLASS 0 [facility] Cat Dander (E1) IgE 1.41(H) kU/L [facility] CLASS 2 [facility] Dog Dander (E5) IgE 46.70(H) kU/L [facility] CLASS 4 [facility] Cladosporium Herbarum (M2) IgE <0.10 kU/L [facility] CLASS 0 [facility] Alternaria Alternata (M6) IgE <0.10 kU/L [facility] CLASS 0 [facility] House Dust ([place]) (H2) IgE 2.82(H) kU/L [facility] CLASS 2 [facility] Dermatophagoides Farinae(D2) IgE 5.57(H) kU/L [facility] CLASS 3 [facility] 09/20/2024 2:52 PM EST 09/21/2024 3:52 AM EST Narrative Resulting Agency Comment [id number] us Bryan [facility] Final Result Performing Organization Address City/State/Inscription [facility] de Phone Number [facility] [address] [place] [address] documented in this encounter Visit Diagnoses Diagnosis Severe persistent asthma without complication (HCC) documented in this encounter Care Teams Composite Bond Technician Relationship Specialty Start Date End Date Provider, [facility] PCP - Backup PCP 11/05/21 Kingston Guerrero MD [address] [place] [address] PCP - General 07/26/24 documented as of this encounter
== END 2024-12-27 11:49 | disposition home or self-care (01) ==
PROVIDERS: Emergency Provider Emergency Medicine
DX: R51.9 Headache, unspecified (principal)
CPT/HCPCS: 99282; 99283

== ENCOUNTER 2025-01-02 08:58 | Emergency (ER) | payer MEDICAID, SELFPAY ==
[2025-01-02 09:05] VITALS: BP 131/73; PULSE 61; RESP 18; TEMP 36.4; O2SAT 97; BMI 24.6
--- NOTE | 2025-01-02 09:28 | PC.NURSE ---
Per provider , not lab draw needed.
--- NOTE | 2025-01-02 09:39 | ED.DENTAL ---
HPI - Dental/Oral General Chief complaint: Dental/Oral Stated complaint: facial swelling due to wisdom teeth removal Time Seen by Provider: 01/02/25 09:19 Source: patient Mode of arrival: ambulatory Limitations: no limitations History of Present Illness ED Provider: DR. Rich HPI Narrative: 24-year-old female presented for evaluation of left-sided facial pain and swelling, s/p impacted bilateral upper wisdom teeth extraction 2 days ago, patient currently is taking amoxicillin, patient also takes ibuprofen and Tylenol pain without relief of the pain, no fever, no chills. no difficulty swollen, no difficulty breathing. Related Data Home Medications ?Medication ?Instructions ?Recorded ?Confirmed lamotrigine 100 mg tablet 100 mg PO DAILY 09/19/23 09/19/23 Previous Rx's ?Medication ?Instructions ?Recorded hydrocodone 5 mg-acetaminophen 325 1 tab PO Q4-6H PRN pain #30 tabs 09/19/23 mg tablet hydrocodone 5 mg-acetaminophen 325 1 tab PO Q4-6H PRN pain #30 tabs 09/29/23 mg tablet oxycodone 5 mg tablet 5 mg PO Q6H PRN severe pain (scale 12/27/24 score 7-10) #16 tabs oxycodone 5 mg tablet 5 mg PO BID PRN pain #10 tabs 01/02/25 Allergies Allergy/AdvReac Type Severity Reaction Status Date / Time [facility] Allergy Hives Verified 01/02/25 09:05 kiwi Allergy Anaphylaxis Verified 01/02/25 09:05 Review of Systems Review of Systems: All other systems are reviewed and are negative Constitutional: Reports as per HPI and Reports no additional constitutional complaints Eyes: Reports as per HPI and Reports no additional eye complaints Reports system reviewed and no additional complaints, except as documented Cardiovascular: Reports as per HPI and Reports no additional cardiovascular complaints Respiratory: Reports as per HPI and Reports no additional respiratory complaints Gastrointestinal: Reports as per HPI and Reports no additional gastrointestinal complaints Genitourinary: Reports no additional female genitourinary complaints Musculoskeletal: Reports no additional musculoskeletal complaints Skin/Breast: Reports system reviewed and no additional complaints, except as docu Psychiatric: Reports no additional psychiatric complaints Endocrine: Reports no additional endocrine complaints Hematologic/Lymphatic: Reports no additional hematologic/lymphatic complaints Allergic/Immunologic: Reports no additional allergic/immunologic complaints Reports system reviewed and no additional complaints, except as documented and Reports Abnormal speech present [facility] Past Medical History Surgical History History of excision of pilonidal cyst Social History Social History Alcohol intake: current Alcohol intake frequency: holidays/special occasions only Alcohol type: beer Patient Tobacco Use Status: Never used Tobacco Smoked in Last 30 Days: No Advance Directives: No Advance Directives Information Provided: Yes Patient : No Physical Exam Vital Signs: Vital Signs: Last Vital Signs Temp 97.6 F 01/02/25 09:05 Pulse 61 01/02/25 09:05 Resp 18 01/02/25 09:05 BP 131/73 01/02/25 09:05 Pulse Ox 97 01/02/25 09:05 O2 Del Method Room Air 01/02/25 09:05 BMI result Body Mass Index 24.6 Vital signs have been reviewed and appear to be correct. Blood pressure elevated. Heart rate normal. Respiratory rate normal. Temperature normal. Oxygen saturation normal. Appearance: Alert. Oriented X3. No acute distress. Head: Normal external exam. Normocephalic. Atraumatic. No Mann signs noted. No raccoon eyes noted . Facial exam: Mild left side facial swelling, no dental abscess is appreciated. Eyes: PERRLA. EOMI. Conjunctiva and sclera normal. Eyelids normal. ENT: TM's Normal. Pharynx normal. Uvula midline. Moist mucous membranes. No trismus noted. No drooling noted. No muffled voice noted. Neck: Normal inspection. Neck supple. FROM. No adenopathy. Thyroid Normal. No meningeal signs. No neck mass noted. CVS: Normal heart rate and rhythm. Heart sound normal. No murmurs noted. Pulses normal throughout. Respiratory: No respiratory distress. Painless inspiration. Breath sounds normal. No wheezes/rales/rhonchi noted. Chest nontender. No accessory muscle usage noted or decreased air movement noted. Abdomen: Soft and nontender. Bowel sounds normal in all 4 quadrants. No distention noted. No organomegaly noted. No visible injury noted. Back: No CVA tenderness. Full range of motion noted. Skin: Skin warm and dry. Normal skin color. Normal skin turgor. No rashes/lesions/lacerations noted. Extremities: No lower extremity edema. Extremities exhibit normal range of motion. Extremities nontender. Neuro: Oriented X 3. Cranial nerve exam: II-XII are grossly intact No motor deficit. No sensory deficit. Reflexes normal. Course Reevaluation(s) Reevaluation #1: post dental extraction pain. Continue with amoxicillin, will prescribe oxycodone to control the pain, patient was instructed to follow-up with her dentist tomorrow. Time: 09:44 Medical Decision Making Differential Diagnosis Differential Diagnoses: The differential diagnosis associated with the presentation includes ( Post extraction dental pain, dental abscess, facial cellulitis.) Admission/Observation Consideration of admission/observation: Escalation of care including admission/observation considered Discharge Plan Discharge Clinical Impression: Toothache Patient Disposition: Home, Self-Care Prescriptions: New oxycodone 5 mg tablet 5 mg PO BID PRN (Reason: pain) Qty: 10 0RF Rx Instructions: Partial Fill upon patient request. No Action lamotrigine 100 mg tablet 100 mg PO DAILY hydrocodone-acetaminophen 5-325 mg tablet 1 tab PO Q4-6H PRN (Reason: pain) Qty: 30 0RF Rx Instructions: Partial Fill upon patient request. oxycodone 5 mg tablet 5 mg PO Q6H PRN (Reason: severe pain (scale score 7-10)) Qty: 16 0RF Rx Instructions: Partial Fill upon patient request. hydrocodone-acetaminophen 5-325 mg tablet 1 tab PO Q4-6H PRN (Reason: pain) Qty: 30 0RF Rx Instructions: Partial Fill upon patient request. Print Language: Nigerien
[2025-01-02 09:45] VITALS: BP 131/73; PULSE 61; RESP 18; TEMP 36.4; O2SAT 97
== END 2025-01-02 09:45 | disposition home or self-care (01) ==
PROVIDERS: Emergency Provider Emergency Medicine
DX: K08.89 Other specified disorders of teeth and supporting structures (principal); Z79.899 Other long term (current) drug therapy
CPT/HCPCS: 99283